=== PATIENT | female | born 1955 | race Caucasian/White ===

== ENCOUNTER 2018-06-21 07:59 | Outpatient (CLI) | payer BC ==
--- NOTE | 2018-06-21 08:30 | RAD ---
PA AND LATERAL CHEST: History: Cough. Comparison: 06-09-12 FINDINGS: The lungs are clear. Cardiomediastinal silhouette is normal. No acute osseous abnormality is evident. Cholecystectomy clips are seen within the right upper quadrant. There is multilevel spondylosis of t he thoracic spine. IMPRESSION: No acute cardiopulmonary abnormality. POS: TPC
== END 2018-06-21 08:00 | disposition home or self-care (01) ==
LOC: BICRAD 07:59
PROVIDERS: ATTEND Internal Medicine
DX: R05 Cough (principal)
CPT/HCPCS: 71046

== ENCOUNTER 2018-06-22 14:02 | Outpatient (CLI) | payer BC | END 2018-06-22 14:03 | disposition home or self-care (01) | LOC: BICMAMMO 14:02 | PROVIDERS: ATTEND Internal Medicine | DX: Z12.31 Encounter for screening mammogram for malignant neoplasm of breast (principal) | CPT/HCPCS: 77063; 77067 ==

== ENCOUNTER 2019-02-23 15:40 | Outpatient (CLI) | payer BC ==
--- NOTE | 2019-02-23 16:56 | RAD ---
EXAM: RIGHT HIP TWO VIEWS: 02/23/19 HISTORY: Right hip pain for several months. FINDINGS/IMPRESSION: Degenerative and osteoarthrosis changes without fracture or dislocation. POS: OFF
== END 2019-02-23 15:41 | disposition home or self-care (01) ==
LOC: BICRAD 15:40
PROVIDERS: ATTEND Internal Medicine
DX: M25.551 Pain in right hip (principal); M16.11 Unilateral primary osteoarthritis, right hip

== ENCOUNTER 2020-12-18 07:17 | Outpatient (CLI) | payer MEDICARE, BC ==
[2020-12-18] MEDS ORDERED: Magnevist 469MG/ML 20 ML VIAL ONE (15:02)
== END 2020-12-18 07:18 | disposition home or self-care (01) ==
LOC: BICMRI 07:17
PROVIDERS: ATTEND Internal Medicine
DX: G25.3 Myoclonus (principal); G93.89 Other specified disorders of brain
CPT/HCPCS: 70553; A9579

== ENCOUNTER 2020-12-27 08:19 | Outpatient (CLI) | payer MEDICARE, BC ==
[2020-12-27] MEDS ORDERED: Iopamidol 370 76% 100 ML VIAL ONE (12:03)
== END 2020-12-27 08:20 | disposition home or self-care (01) ==
LOC: CT 08:19
PROVIDERS: ATTEND Internal Medicine
DX: I63.9 Cerebral infarction, unspecified (principal)
CPT/HCPCS: 70496; 70498; 82565; Q9967

== ENCOUNTER 2021-01-07 09:18 | Outpatient (CLI) | payer MEDICARE, BC ==
[2021-01-07 10:43] LABS: #Basophils 0.1 10x3/uL (0.0-0.2); #Eosinphils 0.2 10x3/uL (0.0-0.5); #Monocytes 0.9 10x3/uL (0.0-1.1); #Neutrophils 6.9 10x3/uL (1.5-8.4); %Basophils 1.1 % (0.0-2.0); %Eosinophils 2.1 % (0.0-6.0); %Monocytes 8.4 % (0.0-10.0); %Neutrophils 67.6 % (40.0-75.0); Hemoglobin 13.9 g/dL (12.0-15.5); Mean Corpuscular HGB CONC 32.4 g/dL (32.0-36.0); Mean Corpuscular Hemoglobin 29.3 pg (27.0-33.0); Mean Corpuscular Volume 90.5 fl (81.6-98.3); Mean Platelet Volume 10.3 fl (7.4-10.4); Platelet Count 294 10x3/uL (150-450); RBC Distribution Width 14.2 % (11.5-14.5); Red Blood Cell (RBC) Count 4.74 10x6/uL (3.90-5.03); White Blood Cell (WBC) Count 10.2 10x3/uL (3.5-10.5)
[2021-01-07 10:55] LABS: ALT (SGPT) 26 U/L (8-55); AST (SGOT) 19 U/L (5-34); Albumin 4.4 g/dL (3.4-4.8); Alkaline Phosphatase 129 U/L (40-110); Bilirubin, Direct 0.2 mg/dL (0.1-0.3); Bilirubin, Total 0.5 mg/dL (0.2-1.2); Protein, Total 7.1 g/dL (5.8-8.1)
[2021-01-07 10:57] LABS: Anion Gap 14 mmol/L (10-20); BUN (Urea Nitrogen) 10 mg/dL (9.8-20.1); Calc. Creatinine Clearance 0 mL/min (70-130); Calcium 9.7 mg/dL (7.8-10.44); Carbon Dioxide 27 mmol/L (23-31); Cardiac Risk 3.3 (Less than 4.5); Chloride 104 mmol/L (98-107); Cholesterol 164 mg/dl (< 200 Desired); Glucose 92 mg/dL (80-115); HDL Cholesterol 50 mg/dL (>60 Neg Risk); LDL Cholesterol, Calculated 94 mg/dL; Potassium 4.4 mmol/L (3.5-5.1); Sodium 141 mmol/L (136-145); Triglycerides 102 mg/dL (Less than 150)
[2021-01-07 14:42] LABS: Gamma GT (GGT) 58 U/L (9-36)
[2021-01-07 22:34] LABS: SARS-CoV-2 PCR by NAA Not Detected (NotDetected)
== END 2021-01-07 09:19 | disposition home or self-care (01) ==
LOC: LABBT 09:18
PROVIDERS: ATTEND Internal Medicine Cardiovascular Disease
DX: Z01.812 Encounter for preprocedural laboratory examination (principal); Z20.822 Contact with and (suspected) exposure to COVID-19; I63.9 Cerebral infarction, unspecified
CPT/HCPCS: 80048; 80061; 80076; 82977; 85025; U0003; U0005; 87635

== ENCOUNTER 2021-01-10 09:30 | Day surgery (SDC) | payer MEDICARE, BC ==
[2021-01-08 15:00] VITALS: BMI 27.6
[2021-01-10] MEDS ORDERED: PROPOFOL 40 ML ONE (10:57)
[2021-01-10] MEDS ORDERED: Fentanyl 100 MCG/2 ML VIAL ONE (10:57)
== END 2021-01-10 13:03 | disposition home or self-care (01) ==
LOC: CCL 09:30
PROVIDERS: ATTEND Internal Medicine Cardiovascular Disease
PROC: B24BZZ4 Ultrasonography of Heart with Aorta, Transesophageal (ICD-10-PCS; principal; 2021-01-10)
DX: I63.9 Cerebral infarction, unspecified (principal); I34.0 Nonrheumatic mitral (valve) insufficiency; E78.2 Mixed hyperlipidemia; F17.210 Nicotine dependence, cigarettes, uncomplicated; L40.9 Psoriasis, unspecified; Z79.02 Long term (current) use of antithrombotics/antiplatelets; Z79.82 Long term (current) use of aspirin; Z79.899 Other long term (current) drug therapy; Z91.040 Latex allergy status; Z91.041 Radiographic dye allergy status
CPT/HCPCS: 93312; J2704; J3010

== ENCOUNTER 2021-01-21 12:24 | Outpatient (CLI) | payer MEDICARE, BC | END 2021-01-21 12:25 | disposition home or self-care (01) | LOC: BICCT 12:24 | PROVIDERS: ATTEND Internal Medicine | DX: Z12.2 Encounter for screening for malignant neoplasm of respiratory organs (principal); F17.210 Nicotine dependence, cigarettes, uncomplicated; I70.0 Atherosclerosis of aorta; J43.9 Emphysema, unspecified; Z90.49 Acquired absence of other specified parts of digestive tract | CPT/HCPCS: 71271 ==

== ENCOUNTER 2022-01-29 10:25 | Outpatient (CLI) | payer MEDICARE, BC | END 2022-01-29 10:26 | disposition home or self-care (01) | LOC: BICCT 10:25 | PROVIDERS: ATTEND Internal Medicine | DX: Z12.31 Encounter for screening mammogram for malignant neoplasm of breast (principal); Z12.2 Encounter for screening for malignant neoplasm of respiratory organs; F17.210 Nicotine dependence, cigarettes, uncomplicated | CPT/HCPCS: 71271; 77063; 77067 ==

== ENCOUNTER 2022-02-06 09:52 | Outpatient (CLI) | payer MEDICARE, BC | END 2022-02-06 09:53 | disposition home or self-care (01) | LOC: BICULT 09:52 | PROVIDERS: ATTEND Internal Medicine | DX: R74.8 Abnormal levels of other serum enzymes (principal); K76.0 Fatty (change of) liver, not elsewhere classified; Z90.49 Acquired absence of other specified parts of digestive tract | CPT/HCPCS: 76705 ==

== ENCOUNTER 2022-08-03 08:34 | Outpatient (CLI) | payer MEDICARE, BC ==
[2022-08-03] MEDS ORDERED: Magnevist 469MG/ML 20 ML VIAL ONE (14:30)
== END 2022-08-03 08:35 | disposition home or self-care (01) ==
LOC: MRI 08:34
PROVIDERS: ATTEND Internal Medicine
DX: R22.41 Localized swelling, mass and lump, right lower limb (principal); R60.0 Localized edema; L98.8 Other specified disorders of the skin and subcutaneous tissue
CPT/HCPCS: A9579

== ENCOUNTER 2022-09-15 18:58 | Inpatient (IN) | payer MEDICARE, BC ==
[2022-09-15 20:07] LABS: #Basophils 0.1 thou/uL (0.0-0.2); #Eosinphils 0.3 thou/uL (0.0-0.7); #Lymphocytes 2.1 thou/uL (1.20-3.40); #Monocytes 0.9 thou/uL (0.11-0.59); %Basophils 0.7 % (0.0-1.0); %Eosinophils 2.6 % (0.0-10.0); %Lymphocytes 20.6 % (21.0-51.0); %Monocytes 8.8 % (0.0-10.0); %Neutrophils 67.3 % (42.0-75.0); Hemoglobin 14.6 g/dL (12.0-16.0); Mean Corpuscular HGB CONC 33.1 g/dL (32.0-36.0); Mean Corpuscular Volume 96.6 fl (78.0-98.0); Mean Platelet Volume 8.2 fL (7.4-10.4); Platelet Count 275 10x3/uL (130-400); RBC Distribution Width 12.9 % (11.5-14.5); Red Blood Cell (RBC) Count 4.55 mill/uL (4.20-5.40); White Blood Cell (WBC) Count 10.4 10x3/uL (4.8-10.8)
[2022-09-15 20:31] LABS: ALT (SGPT) 20 U/L (8-55); AST (SGOT) 23 U/L (5-34); Albumin 4.3 g/dL (3.4-4.8); Alkaline Phosphatase 121 U/L (40-110); Anion Gap 16 mmol/L (10-20); BUN (Urea Nitrogen) 13 mg/dL (9.8-20.1); Bilirubin, Total 0.6 mg/dL (0.2-1.2); Calc. Creatinine Clearance 0 mL/min (70-130); Calcium 10.4 mg/dL (7.8-10.44); Carbon Dioxide 27 mmol/L (23-31); Chloride 102 mmol/L (98-107); Estimated GFR 64; Globulin 3.1 g/dL (2.4-3.5); Glucose 112 mg/dL (80-115); Potassium 3.8 mmol/L (3.5-5.1); Protein, Total 7.4 g/dL (5.8-8.1); Sodium 141 mmol/L (136-145)
[2022-09-15 21:20] LABS: Bilirubin Negative (Negative); Blood, Urine 2+ (Negative); Clarity Clear (Clear); Glucose, Urine (Dipstick) Normal (Negative); Ketone, Urine Negative (Negative); Leukocyte 250 Leu/uL (Negative); Nitrite Negative (Negative); Protein, Urine (Dipstick) Negative (Neg-Trace); Specific Gravity, Urine 1.017 (1.002-1.036); Urobilinogen Normal mg/dL (Less than 2)
[2022-09-15 21:27] LABS: Bacteria/HPF Rare-Few HPF (None Seen)
[2022-09-15] MEDS ORDERED: Cefepime 2 GM VIAL ONE (22:57)
[2022-09-15] MEDS ORDERED: Vancomycin 1 GM/200 ML (FROZEN) BAG ONE (23:54)
[2022-09-16 01:35] LABS: SARS-CoV-2 NAA Rapid Test Not Detected (NotDetected)
[2022-09-16 01:57] VITALS: BMI 31.0
[2022-09-16] MEDS ORDERED: HYDROcodone/Acetaminophen 5/325 mg Tablet PO PRN (10:12)
[2022-09-16] MEDS ORDERED: Acetaminophen 500 MG TAB PO PRN (10:12)
[2022-09-16] MEDS ORDERED: Ibuprofen 600 MG TAB PO PRN (10:12)
[2022-09-16] MEDS ORDERED: traMADol HCl 50 MG TAB PO PRN (10:12)
[2022-09-16] MEDS ORDERED: Acetaminophen 500 MG TAB PO SCH (10:15)
[2022-09-16] MEDS ORDERED: Acetaminophen 500 MG TAB ONE (11:47)
[2022-09-16] MEDS: Cefepime 2 GM in Sodium Chloride 0.9% 100 ML IVPB SCH (20:23)
[2022-09-16] MEDS ORDERED: Enoxaparin Sodium 40 MG/0.4 ML SYRINGE SC SCH (21:00)
[2022-09-16] MEDS ORDERED: Atorvastatin Calcium 40 MG TAB PO SCH (21:00)
[2022-09-16] MEDS ORDERED: CLOBETASOL TOP SCH (21:00)
[2022-09-16] MEDS ORDERED: Famotidine 20 MG TAB PO PRN (21:26)
[2022-09-16] MEDS: Clobetasol 0.05% Cream 15 gm Tube TOP SCH (21:38)
[2022-09-16] MEDS: Linezolid 600 MG in Premix Bag 1 BAG IVPB SCH (21:38)
[2022-09-17 08:26] VITALS: BP 157/71; TEMP 97.9
[2022-09-17] MEDS ORDERED: Acyclovir 400 mg Tablet PO SCH (09:00)
[2022-09-17] MEDS ORDERED: BROMFENAC SODIUM EA EYE SCH (09:00)
[2022-09-17] MEDS ORDERED: Clopidogrel Bisulfate 75 MG TAB PO SCH (09:00)
[2022-09-17] MEDS ORDERED: Non-Formulary Item 1 EACH (Atorvastatin Calcium [Atorvastatin Calcium] 80 MG Tablet) PO SCH (09:00)
[2022-09-17] MEDS ORDERED: Aspirin 81 mg Enteric Coated Tablet PO SCH (09:00)
[2022-09-17] MEDS ORDERED: Ezetimibe 10 MG TAB PO SCH (09:00)
[2022-09-17] MEDS ORDERED: Multivit, Therapeutic 1 TAB PO SCH (09:00)
[2022-09-17] MEDS ORDERED: Bromfenac Sodium [Prolensa] 3 ML Drops EA EYE SCH (09:00)
[2022-09-17] MEDS ORDERED: Non-Formulary Item 1 EACH (Multivitamin [Multiple Vitamins] 1 EACH Tablet) PO SCH (09:00)
[2022-09-17] MEDS ORDERED: Linezolid 600 MG TAB PO SCH ×2 (10:30→21:00)
[2022-09-17] MEDS: Cefepime 2 GM in Sodium Chloride 0.9% 100 ML IVPB SCH (10:33)
[2022-09-17] MEDS: Clobetasol 0.05% Cream 15 gm Tube TOP SCH (10:34)
[2022-09-17] MEDS: Linezolid 600 MG in Premix Bag 1 BAG IVPB SCH (11:54)
== END 2022-09-17 12:04 | disposition home or self-care (01) | DRG 863 ==
LOC: ERS 18:58 → ERHOLD 23:04 → T4-A 09-16 12:10 → OBSVTOIN 09-16 16:32
PROVIDERS: ADMIT Specialist; ATTEND Specialist
DX: T81.49XA Infection following a procedure, other surgical site, initial encounter (principal); L03.115 Cellulitis of right lower limb; Z20.822 Contact with and (suspected) exposure to COVID-19; E78.00 Pure hypercholesterolemia, unspecified; F17.210 Nicotine dependence, cigarettes, uncomplicated; Y83.8 Other surgical procedures as the cause of abnormal reaction of the patient, or of later complication, without mention of misadventure at the time of the procedure; Z88.5 Allergy status to narcotic agent; Z91.040 Latex allergy status; Z88.1 Allergy status to other antibiotic agents; Z86.73 Personal history of transient ischemic attack (TIA), and cerebral infarction without residual deficits; Z90.49 Acquired absence of other specified parts of digestive tract; Z98.890 Other specified postprocedural states
CPT/HCPCS: 36415; 80053; 81003; 81015; 83605; 85025; 87040; 87070; 87077; 87186; 87205; 96374; 96375; 97139; J0692; J1650; J2020; J3370-JW; J3490; U0002

== ENCOUNTER 2023-05-19 10:59 | Outpatient (CLI) | payer MEDICARE, BC | END 2023-05-19 11:00 | disposition home or self-care (01) | LOC: BICMAMMO 10:59 | PROVIDERS: ATTEND Internal Medicine | DX: Z12.31 Encounter for screening mammogram for malignant neoplasm of breast (principal) | CPT/HCPCS: 77063; 77067 ==

== ENCOUNTER 2023-06-09 13:47 | Outpatient (CLI) | payer MEDICARE, BC | END 2023-06-09 13:48 | disposition home or self-care (01) | LOC: BICCT 13:47 | PROVIDERS: ATTEND Internal Medicine | DX: Z12.2 Encounter for screening for malignant neoplasm of respiratory organs (principal); F17.210 Nicotine dependence, cigarettes, uncomplicated | CPT/HCPCS: 71271 ==

== ENCOUNTER 2023-06-09 14:15 | Outpatient (CLI) | payer MEDICARE, BC | END 2023-06-09 14:16 | disposition home or self-care (01) | LOC: BICMAMMO 14:15 | PROVIDERS: ATTEND Internal Medicine | DX: Z13.820 Encounter for screening for osteoporosis (principal); Z78.0 Asymptomatic menopausal state; M85.852 Other specified disorders of bone density and structure, left thigh | CPT/HCPCS: 77080 ==

== ENCOUNTER 2024-08-15 12:52 | Emergency (ER) | payer BC, MEDICARE ==
[2024-08-15 13:52] LABS: #Basophils 0.07 10x3/uL (0.0-0.2); %Basophils 0.3 % (0.0-1.0); %Eosinophils 0.3 % (0.0-10.0); %Lymphocytes 5.3 % (21.0-51.0); %Monocytes 7.1 % (0.0-10.0); %Neutrophils 86.2 % (42.0-75.0); Hematocrit 40.4 % (36.0-47.0); Hemoglobin 13.2 g/dL (12.0-16.0); Mean Corpuscular HGB CONC 32.7 g/dL (32.0-36.0); Mean Corpuscular Hemoglobin 27.7 pg (27.0-31.0); Mean Corpuscular Volume 84.7 fL (78.0-98.0); Platelet Count 370 10x3/uL (130-400); RBC Distribution Width 15.8 % (11.5-14.5); Red Blood Cell (RBC) Count 4.77 mill/uL (4.20-5.40)
[2024-08-15 14:24] LABS: ALT (SGPT) 40 U/L (8-55); AST (SGOT) 28 U/L (5-34); Albumin 3.3 g/dL (3.4-4.8); Alkaline Phosphatase 149 U/L (40-110); Anion Gap 17 mmol/L (10-20); BUN (Urea Nitrogen) 9 mg/dL (9.8-20.1); Bilirubin, Total 0.8 mg/dL (0.2-1.2); Calc. Creatinine Clearance 0 mL/min (70-130); Calcium 9.4 mg/dL (7.8-10.44); Carbon Dioxide 25 mmol/L (23-31); Chloride 97 mmol/L (98-107); Estimated GFR 84; Globulin 4.1 g/dL (2.4-3.5); Glucose 110 mg/dL (80-115); Lipase 6 U/L (8-78); Potassium 3.6 mmol/L (3.5-5.1); Protein, Total 7.4 g/dL (5.8-8.1); Sodium 135 mmol/L (136-145)
[2024-08-15] MEDS ORDERED: diphenhydrAMINE 50 MG/ML VIAL ONE (14:50)
[2024-08-15] MEDS ORDERED: Famotidine/PF 20 mg/2ml Vial ONE (14:50)
[2024-08-15] MEDS ORDERED: methylPREDNISolone Sod Succ 40 MG VIAL ONE (14:50)
[2024-08-15 15:37] LABS: Bilirubin Negative (Negative); Blood, Urine 2+ (Negative); CAUTI Indications for Culture Pelvic or flank pain; Clarity Clear (Clear); Glucose, Urine (Dipstick) Normal (Negative); Ketone, Urine Negative (Negative); Leukocyte 250 Leu/uL (Negative); Nitrite Negative (Negative); Protein, Urine (Dipstick) Negative (Neg-Trace); Specific Gravity, Urine 1.004 (1.002-1.036); Urobilinogen Normal mg/dL (Less than 2); WBC/HPF 21-50 HPF (0-3); pH, Urine 7.5 (5.0-9.0)
[2024-08-15 15:40] LABS: Bacteria/HPF 1+ HPF (None Seen)
== END 2024-08-15 18:32 | disposition home or self-care (01) ==
LOC: ERS 12:52
DX: K57.32 Diverticulitis of large intestine without perforation or abscess without bleeding (principal); N82.3 Fistula of vagina to large intestine; F17.210 Nicotine dependence, cigarettes, uncomplicated; E78.00 Pure hypercholesterolemia, unspecified; Z79.899 Other long term (current) drug therapy; Z86.73 Personal history of transient ischemic attack (TIA), and cerebral infarction without residual deficits; Z79.82 Long term (current) use of aspirin
CPT/HCPCS: 36415; 74177; 80053; 81001; 83605; 83690; 85025; 96374; 96375; J1200; J2919; J3490

== ENCOUNTER 2024-08-24 16:59 | Inpatient (IN) | payer MEDICARE ==
[2024-08-24] MEDS ORDERED: hydrALAZINE 20 MG/ML VIAL SLOW IVP PRN (18:03)
[2024-08-24] MEDS ORDERED: Ondansetron PF 4 MG/2 ML Vial IVP PRN (18:03)
[2024-08-24] MEDS ORDERED: Acetaminophen 500 MG TAB PO PRN (18:03)
[2024-08-24] MEDS ORDERED: Ondansetron ODT 4 MG TAB PO PRN (18:03)
[2024-08-24] MEDS ORDERED: traMADol HCl 50 MG TAB PO PRN ×2 (18:03)
[2024-08-24 18:06] VITALS: BMI 26.6
[2024-08-24 18:26] LABS: #Basophils 0.12 10x3/uL (0.0-0.2); %Basophils 0.6 % (0.0-1.0); %Eosinophils 0.6 % (0.0-10.0); %Lymphocytes 9.3 % (21.0-51.0); %Monocytes 6.9 % (0.0-10.0); %Neutrophils 80.4 % (42.0-75.0); Hematocrit 39.1 % (36.0-47.0); Hemoglobin 12.7 g/dL (12.0-16.0); Mean Corpuscular HGB CONC 32.5 g/dL (32.0-36.0); Mean Corpuscular Volume 86.1 fL (78.0-98.0); Mean Platelet Volume 9.4 fL (7.4-10.4); Platelet Count 387 10x3/uL (130-400); RBC Distribution Width 16.1 % (11.5-14.5); Red Blood Cell (RBC) Count 4.54 mill/uL (4.20-5.40)
[2024-08-24] MEDS ORDERED: Milk Of Magnesia 30 ML UDCUP PO PRN (19:05)
[2024-08-24 19:29] LABS: ALT (SGPT) 37 U/L (8-55); AST (SGOT) 24 U/L (5-34); Albumin 3.3 g/dL (3.4-4.8); Alkaline Phosphatase 116 U/L (40-110); Anion Gap 18 mmol/L (10-20); BUN (Urea Nitrogen) 10 mg/dL (9.8-20.1); Bilirubin, Total 0.4 mg/dL (0.2-1.2); Calc. Creatinine Clearance 91 mL/min (70-130); Calcium 9.6 mg/dL (7.8-10.44); Carbon Dioxide 22 mmol/L (23-31); Chloride 104 mmol/L (98-107); Estimated GFR 95; Globulin 3.8 g/dL (2.4-3.5); Glucose 109 mg/dL (80-115); Potassium 3.3 mmol/L (3.5-5.1); Protein, Total 7.1 g/dL (5.8-8.1); Sodium 141 mmol/L (136-145)
[2024-08-24] MEDS: Sodium Chloride 0.9% 1,000 ML IV SCH (19:33)
[2024-08-24] MEDS: Piperacillin/Tazobactam 3.375 GM in Sodium Chloride 0.9% 100 ML IVPB SCH (19:33)
[2024-08-24] MEDS: LevoFLOXacin 750 mg/D5W 750 MG in Premix 1 BAG IVPB SCH (20:15)
[2024-08-24] MEDS: Famotidine/PF 20 mg/2ml Vial SLOW IVP SCH (20:16)
[2024-08-24 20:58] LABS: Bacteria/HPF None Seen HPF (None Seen); Bilirubin Negative (Negative); Blood, Urine 2+ (Negative); CAUTI Indications for Culture Fever or rigors; Clarity Clear (Clear); Glucose, Urine (Dipstick) Normal (Negative); Ketone, Urine Negative (Negative); Leukocyte Negative Leu/uL (Negative); Nitrite Negative (Negative); Protein, Urine (Dipstick) Negative (Neg-Trace); RBC/HPF 0-3 HPF (0-3); Squamous Epithelial 0-3 HPF (0-3); Urobilinogen Normal mg/dL (Less than 2); WBC/HPF 0-3 HPF (0-3); pH, Urine 6.5 (5.0-9.0)
[2024-08-24 21:08] LABS: Specific Gravity, Urine 1.005 (1.002-1.036)
[2024-08-24 21:10] LABS: Urine Culture Reflex No No
[2024-08-24] MEDS ORDERED: Piperacillin/Tazobactam 3.375 GM in Sodium Chloride 0.9% 100 ML IVPB SCH (22:00)
[2024-08-24] MEDS: metroNIDAZOLE 500 MG in Premix 1 BAG IVPB SCH (22:15)
[2024-08-25 04:58] LABS: #Basophils 0.09 10x3/uL (0.0-0.2); %Basophils 0.6 % (0.0-1.0); %Eosinophils 0.8 % (0.0-10.0); %Lymphocytes 10.6 % (21.0-51.0); %Neutrophils 77.9 % (42.0-75.0); Hematocrit 36.4 % (36.0-47.0); Mean Corpuscular Hemoglobin 28.3 pg (27.0-31.0); Mean Corpuscular Volume 85.8 fL (78.0-98.0); Mean Platelet Volume 9.7 fL (7.4-10.4); Platelet Count 350 10x3/uL (130-400); RBC Distribution Width 16.1 % (11.5-14.5); Red Blood Cell (RBC) Count 4.24 mill/uL (4.20-5.40)
[2024-08-25 05:06] LABS: ALT (SGPT) 31 U/L (8-55); AST (SGOT) 19 U/L (5-34); Albumin 2.8 g/dL (3.4-4.8); Alkaline Phosphatase 97 U/L (40-110); Anion Gap 14 mmol/L (10-20); BUN (Urea Nitrogen) 8 mg/dL (9.8-20.1); Bilirubin, Total 0.5 mg/dL (0.2-1.2); Calc. Creatinine Clearance 92 mL/min (70-130); Calcium 8.7 mg/dL (7.8-10.44); Carbon Dioxide 23 mmol/L (23-31); Chloride 107 mmol/L (98-107); Estimated GFR 95; Globulin 3.3 g/dL (2.4-3.5); Glucose 99 mg/dL (80-115); Potassium 3.9 mmol/L (3.5-5.1); Protein, Total 6.1 g/dL (5.8-8.1); Sodium 140 mmol/L (136-145)
[2024-08-25] MEDS: Hydrochlorothiazide 25 MG TAB PO SCH (09:36)
[2024-08-25] MEDS: Multivit, Therapeutic 1 TAB PO SCH (09:36)
[2024-08-25] MEDS: Clopidogrel Bisulfate 75 MG TAB PO SCH (09:36)
[2024-08-25] MEDS: Aspirin 81 mg Enteric Coated Tablet PO SCH (09:37)
[2024-08-25] MEDS: Guaifenesin DM 100-10/5 ML UDCUP PO PRN (18:54)
[2024-08-25] MEDS: predniSONE 50 MG TAB PO SCH (20:51)
[2024-08-25] MEDS: Atorvastatin Calcium 40 MG TAB PO SCH (20:51)
[2024-08-26] MEDS: Melatonin 3 MG TAB PO SCH (00:55)
[2024-08-26 05:33] LABS: #Basophils 0.05 10x3/uL (0.0-0.2); #Eosinophils Less than 0.03 10x3/uL (0.0-0.7); %Basophils 0.4 % (0.0-1.0); %Eosinophils 0.1 % (0.0-10.0); %Lymphocytes 6.6 % (21.0-51.0); %Monocytes 0.9 % (0.0-10.0); %Neutrophils 90.5 % (42.0-75.0); Hematocrit 38.6 % (36.0-47.0); Hemoglobin 12.7 g/dL (12.0-16.0); Mean Corpuscular HGB CONC 32.9 g/dL (32.0-36.0); Mean Corpuscular Hemoglobin 27.9 pg (27.0-31.0); Mean Corpuscular Volume 84.6 fL (78.0-98.0); Mean Platelet Volume 9.8 fL (7.4-10.4); Platelet Count 383 10x3/uL (130-400); Red Blood Cell (RBC) Count 4.56 mill/uL (4.20-5.40)
[2024-08-26 05:44] LABS: Anion Gap 15 mmol/L (10-20); BUN (Urea Nitrogen) 13 mg/dL (9.8-20.1); Calc. Creatinine Clearance 82 mL/min (70-130); Calcium 9.5 mg/dL (7.8-10.44); Carbon Dioxide 21 mmol/L (23-31); Chloride 106 mmol/L (98-107); Estimated GFR 87; Glucose 149 mg/dL (80-115); Potassium 3.8 mmol/L (3.5-5.1); Sodium 138 mmol/L (136-145)
[2024-08-26 07:48] VITALS: BP 132/75; TEMP 97.7
[2024-08-26] MEDS: diphenhydrAMINE 25 MG CAP PO SCH (08:18)
[2024-08-26] MEDS: valACYclovir 500 MG TAB PO SCH (08:22)
[2024-08-26] MEDS: Losartan 25 MG TAB PO SCH (08:22)
[2024-08-26] MEDS: Ezetimibe 10 MG TAB PO SCH (08:23)
[2024-08-26] MEDS: Loratadine 10 MG TAB PO SCH (08:24)
[2024-08-26] MEDS: Hydrochlorothiazide 25 MG TAB PO SCH (08:24)
[2024-08-26] MEDS: prednisoLONE 1% Ophth Susp 5 ml Bottle EA EYE SCH (13:28)
== END 2024-08-26 14:07 | disposition home or self-care (01) | DRG 394 ==
LOC: SURG B 16:59
PROVIDERS: ADMIT Family Medicine; ATTEND Hospitalist
DX: N82.3 Fistula of vagina to large intestine (principal); K57.32 Diverticulitis of large intestine without perforation or abscess without bleeding; Z88.1 Allergy status to other antibiotic agents; Z91.041 Radiographic dye allergy status; Z91.040 Latex allergy status; E78.5 Hyperlipidemia, unspecified; Z86.73 Personal history of transient ischemic attack (TIA), and cerebral infarction without residual deficits; Z79.899 Other long term (current) drug therapy; Z79.02 Long term (current) use of antithrombotics/antiplatelets; Z79.82 Long term (current) use of aspirin; Z90.49 Acquired absence of other specified parts of digestive tract; Z96.641 Presence of right artificial hip joint; F17.210 Nicotine dependence, cigarettes, uncomplicated; I10 Essential (primary) hypertension
CPT/HCPCS: 36415; 74177; 80048; 80053; 81001; 85025; J1956; J2543; J3490; J7030; J7512

== ENCOUNTER 2025-03-20 15:11 | Outpatient (CLI) | payer MEDICARE | END 2025-03-20 15:12 | disposition home or self-care (01) | LOC: BICRAD 15:11 | PROVIDERS: ATTEND Internal Medicine | DX: R76.12 Nonspecific reaction to cell mediated immunity measurement of gamma interferon antigen response without active tuberculosis (principal) | CPT/HCPCS: 71046 ==

== ENCOUNTER 2025-06-15 12:28 | Outpatient (CLI) | payer MEDICARE | END 2025-06-15 12:29 | disposition home or self-care (01) | LOC: BICMAMMO 12:28 | PROVIDERS: ATTEND Internal Medicine | DX: Z78.0 Asymptomatic menopausal state (principal) | CPT/HCPCS: 77080 ==

== ENCOUNTER 2025-08-14 09:05 | Outpatient (CLI) | payer MEDICARE | END 2025-08-14 09:06 | disposition home or self-care (01) | LOC: RAD 09:05 | PROVIDERS: ATTEND Internal Medicine Critical Care Medicine | DX: R06.00 Dyspnea, unspecified (principal) | CPT/HCPCS: 71046 ==